=== PATIENT | female | born 1970 | race Caucasian/White ===

== ENCOUNTER → 2021-02-22 10:14 | Outpatient (CLI) | payer OTHER, SELFPAY ==
[2021-02-22 13:07] LABS: COVID19 -Nasal RAPID Negative (Negative)
== END ==
PROVIDERS: PCP Nurse Practitioner; Visit Provider Nurse Practitioner
DX: Z01.812 Encounter for preprocedural laboratory examination (principal)
CPT/HCPCS: 87635

== ENCOUNTER 2021-02-23 09:00 | Day surgery (SDC) | payer OTHER, SELFPAY ==
[2021-02-23 09:25] VITALS: BP 106/70; PULSE 54; RESP 16; TEMP 36.5; O2SAT 98; BMI 28.1
[2021-02-23] MEDS: SODIUM CHLORIDE 0.9% 1,000 ML 84 ML IV (09:35)
--- NOTE | 2021-02-23 10:07 | PM.HP.1 ---
History of Present Illness History of Present Illness Date Patient Seen: 02/23/21 Time Patient Seen: 10:08 Chief complaint: SDC Narrative: Indicated for colon cancer screening. Asymptomatic. Patient History Comment: Hx of gastric sleeve Family & Social History Social History: household members spouse Tobacco & Substance use: Smoking Status Never smoker alcohol intake current alcohol intake frequency a few times a week Substance Use Type does not use Meds Home Medications and Allergies Home Medications Medication Instructions Recorded Confirmed Type escitalopram oxalate 10 mg tablet 10 mg PO DAILY #0 11/28/16 02/23/21 History (Lexapro) melatonin 5 mg tablet 5 mg PO PRN PRN #0 11/28/16 02/23/21 History letrozole 2.5 mg tablet (Femara) 2.5 mg PO QDAY #30 tab 05/15/17 02/23/21 Rx calcium 600 mg capsule 600 mg PO DAILY 02/23/21 02/23/21 History Allergies Allergy/AdvReac Type Severity Reaction Status Date / Time No Known Drug Allergies Allergy Verified 02/23/21 08:18 Review of Systems Review of Systems ROS: Yes All systems reviewed with the patient and are negative except as otherwise documented Exam Vital Signs (past 8 hours): - 02/23/21 09:25 Temperature 97.7 F Pulse Rate 54 L Respiratory Rate 16 Blood Pressure 106/70 Pulse Oximetry 98 Oxygen Delivery Method Room Air Const General: cooperative and comfortable Orientation: alert HENSD Head: normocephalic Ears: external ears normal Nose: external nose normal Face and sinus: normal facial exam Mouth: oral mucosae normal Eyes General: appearance normal, both eyes and all related structures Neck Neck: normal visual inspection Chest Chest: normal inspection of the chest Resp Effort & Inspection: normal respiratory effort Auscultation: clear to auscultation bilaterally Cardio Rate: regular rate Rhythm: regular rhythm Heart Sounds: no murmurs GI Inspection: normal to inspection Palpation: soft and No tender Auscultation: normal bowel sounds Skin General: no rashes or lesions noted and No jaundice Neuro General: patient alert and moves all extremities Cognition: normal cognition Speech: speech normal Extrem General: no pedal edema Psych Appearance: grossly normal Assessment & Plan Assessment & Plan narrative: Indicated for colon cancer screening. Colonoscopy today.
--- NOTE | 2021-02-23 10:09 | PM.PREOP ---
Pre-operative Note COVID-19 COVID-19 status: Negative Result date/Date tested (Pos, Neg/Pending): 02/22/21 Interval Note History & Physical reviewed/Exam performed by Physician: Yes Changes to H&P: No ASA Class (for procedural sedation): I
[2021-02-23] MEDS: MIDAZOLAM 5 MG/5 ML VIAL IV (10:38)
[2021-02-23] MEDS: fentaNYL 250 MCG/5 ML INJ IV (10:38)
--- NOTE | 2021-02-23 11:01 | PM.OP.ENDO ---
Operative Date/Time/Diagnoses Date of procedure: 02/23/21 Time of procedure: 11:01 Pre-op diagnosis: Colon cancer screening Post-op diagnosis: same Procedure & Clinicians Study performed: Colonoscopy Same procedure as scheduled: Yes Indications: Colon cancer screening Surgeon: Sylvester Carreon Procedure Notes SCOAP/Timeout: Done Procedure in detail: After the risks and benefits were explained, written and verbal informed consent was obtained. The patient was brought into the procedure room and placed into the left lateral decubitus position. Conscious sedation medication was applied as per nursing documentation. Digital rectal examination was accomplished. The scope was introduced into the patient and advanced under direct visualization to the cecum as identified by the appendiceal orifice and ileocecal valve. The scope was slowly withdrawn to carefully examine the mucosa for any defects or lesions. Comprehensive imaging was accomplished throughout the rectum including the dentate line. The colon was decompressed, the scope was then removed from the patient who tolerated the procedure well. 3 mg Versed 75 mcg fentanyl Bowel prep adequate Adult colonoscope Scope withdrawal time: 8 minutes Sedation minutes: 23 Specimen(s): none sent Complications: none Impression: Patient had a long redundant colon. In order to overcome looping we used the stiffening traci and some abdominal pressure. No significant polyps mass lesions or inflammatory features identified throughout. Hemorrhoids were noted on scope withdrawal. Endoscopic diagnosis 1. Visually normal colonoscopy 2. Grade 2 internal hemorrhoids Post-procedure Recommendations: Colonscopy in 10 years Plan for aftercare: Repeat colonoscopy 10 years time sooner should symptoms warrant an earlier exam. Disposition: PACU
[2021-02-23 11:09] VITALS: BP 105/60; PULSE 50; RESP 16; O2SAT 100
[2021-02-23 11:14] VITALS: BP 112/64; PULSE 45; RESP 16; TEMP 36.7; O2SAT 98
== END 2021-02-23 11:42 | disposition home or self-care (01) ==
PROVIDERS: PCP Family Medicine; Referring Provider Internal Medicine Gastroenterology; Visit Provider Internal Medicine Gastroenterology
PROC: 0DJD8ZZ Inspection of Lower Intestinal Tract, Via Natural or Artificial Opening Endoscopic (ICD-10-PCS; CPT 45378; principal; 2021-02-23 10:00)
DX: Z12.11 Encounter for screening for malignant neoplasm of colon (principal); K64.1 Second degree hemorrhoids
CPT/HCPCS: 45378; J2250; J3010

== ENCOUNTER → 2021-06-15 13:35 | Outpatient (CLI) | payer OTHER, SELFPAY ==
--- NOTE | 2021-06-15 13:37 | DI.MRI.S_ITS ---
BREAST MRI OF BOTH BREASTS- POST LUMPECTOMY: 06/15/2021 CLINICAL: Personal History of Malignant neoplasm of breast. Comparison is made to exams dated: 11/20/2020 stereotactic biopsy - [facility], 11/11/2020 mammogram, 10/21/2020 mammogram, 03/28/2020 breast MRI, 11/11/2020 ultrasound, and 03/12/2020 mammogram - [facility]. INDICATIONS: Personal history of malignant neoplasm of breast TECHNIQUE: The patient was placed prone in a dedicated breast imaging coil. Precontrast axial STIR and 3D FLASH without fat saturation sequences were obtained. Both before and after bolus injection of contrast, sequential 1-minute axial 3D FLASH with fat saturation sequences for 3 time points, with subtraction images and maximum intensity projections (MIP's) generated. Delayed sagittal FLASH images with fat saturation were also obtained. Computer-aided detection, including computer algorithm analysis of MRI image data for lesion detection and characterization, pharmacokinetic analysis, with further physician review for interpretation, was performed. FINDINGS: Image quality: Excellent. There is minimal background parenchymal enhancement. The tissue of both breasts is heterogeneously dense. Right breast: No suspicious mass or abnormal non-mass enhancement. No suspicious internal mammary or axillary lymphadenopathy. Left breast: Postsurgical changes are seen in the left breast anterior depth central to the nipple with multiple surgical clips. Associated skin thickening and trabecular thickening is noted in the left breast, most likely related to postradiation changes. Postsurgical changes are also seen in the left axilla. A biopsy clip is seen in the left medial breast at the 9 o'clock position posterior depth corresponding to the recent stereotactic-guided biopsy with benign results. No suspicious mass or abnormal non-mass enhancement is seen in the left breast. No suspicious internal mammary or axillary lymphadenopathy. Miscellaneous: No significant abnormality is seen in the included anterior chest wall or upper abdomen. IMPRESSION: BENIGN 1. Postsurgical changes are seen in the left breast and left axilla. Biopsy clip is also seen in the medial left breast posterior depth related to the prior stereotactic biopsy. No suspicious mass is seen in the left breast. 2. No MR evidence of malignancy in the right breast. 3. No suspicious axillary or internal mammary lymphadenopathy. BIRADS 2: Benign. A 1 year screening mammogram is recommended. Future imaging is recommended as follows: 10/22/2021 screening mammogram. This exam was interpreted at Station ID: [id number]. Electronically Signed By: Braden Joyce M.D. ar/:06/15/2021 16:36:21 Entry: - 06/16/2021 13:51:11 copy to: Justin PELAYO BI-RADS Category 2: Benign Finding(s) [id number]
== END ==
PROVIDERS: PCP Family Medicine; Referring Provider Internal Medicine; Visit Provider Internal Medicine
DX: Z85.3 Personal history of malignant neoplasm of breast; Z12.39 Encounter for other screening for malignant neoplasm of breast
CPT/HCPCS: 77049; A9579

== ENCOUNTER → 2022-07-12 10:38 | Outpatient (CLI) | payer OTHER, SELFPAY ==
--- NOTE | 2022-07-12 | DI.MRI.S_ITS ---
BREAST MRI OF BOTH BREASTS- POST LUMPECTOMY: 07/12/2022 CLINICAL: Intraductal Carcinoma. TECHNIQUE: The patient was placed prone in a dedicated breast imaging coil. Precontrast axial STIR and 3D FLASH without fat saturation sequences were obtained. Both before and after bolus injection of contrast, sequential 1-minute axial 3D FLASH with fat saturation sequences for 3 time points, with subtraction images and maximum intensity projections (MIP's) generated. Delayed sagittal FLASH images with fat saturation were also obtained. Computer-aided detection, including computer algorithm analysis of MRI image data for lesion detection and characterization, pharmacokinetic analysis, with further physician review for interpretation, was performed. COMPARISON: [facility], MG, MG DIAGNOSTIC BILATERAL, 03/12/2020, 8:33. [facility], MG, MG DIGITAL BREAST TOMOSYNTHESIS BREAST BIOPSY LEFT, 11/20/2020, 13:19. Outside [facility], US, US BREAST LIMITED RIGHT, 11/11/2020, 12:06. Outside [facility], MG, MG SCREENING BILATERAL, 10/21/2020, 11:28. Outside Film, MG, MG DIAGNOSTIC BILATERAL, 11/11/2020, 11:39. [facility], MR, MR BREAST BI WO/W CON, 06/15/2021, 13:42. FINDINGS: Image quality: Excellent. There is mild background parenchymal enhancement. There is heterogeneously dense fibroglandular breast tissue in the bilateral breast. Right breast: No suspicious mass, non-mass enhancement, or architectural distortion identified. No suspicious skin or nipple abnormalities. No axillary or internal mammary chain adenopathy. Left breast: Stable postsurgical changes of the anterior left breast with associated scarring status post partial mastectomy. Susceptibility artifact from surgical clips are unchanged. Stable susceptibility artifact involving the medial aspect of the left breast at a middle to posterior depth compatible with prior benign stereotactic breast biopsy. Otherwise, no suspicious mass, non-mass enhancement, or new suspicious architectural distortion identified. No new suspicious skin or nipple abnormality seen. Stable postsurgical changes of the left axilla. No axillary or internal mammary chain adenopathy. Miscellaneous: Visualized portions of the upper abdomen and chest appear unremarkable. IMPRESSION: BENIGN 1. Right breast without MRI evidence for malignancy. 2. Stable postsurgical and post treatment changes of the left breast without MRI evidence for malignancy. 3. No evidence for axillary or internal mammary chain adenopathy. Recommend continued yearly screening mammography and consideration for yearly breast MRI evaluation. COMMENT: The imaging literature indicates that a negative contrast breast MRI examination has a high sensitivity and a moderate specificity for detecting and excluding invasive carcinomas to a detection threshold of 3-5 mm; nonetheless, appropriate clinical and mammographic follow-up are recommended. MRI is not sensitive for detecting DCIS (ductal carcinoma in situ) and may not detect large invasive neoplasms that show only minimal enhancement such as mucinous carcinoma. If there are suspicious calcifications or clinically worrisome palpable masses, then biopsy should still be considered. Invasive neoplasms can be hidden by co-existent and benign enhancement caused by mastitis, hormone therapy effects, radiation therapy, , and recent biopsy or surgery. False positive examinations can occur in a number of circumstances, including breasts that have recently been subject to invasive procedures and those that contain atypical ductal hyperplasia, hormonally stimulated glandular tissue, fat necrosis, or radial scars. This exam was interpreted at Station ID: [id number]. Electronically Signed By: Torey Blankenship M.D. aty/:07/12/2022 17:39:01 copy to: Justin Tuttle ACR BI-RADS Category 2: Benign Finding(s) [id number]
== END ==
PROVIDERS: PCP Family Medicine; Referring Provider Internal Medicine; Visit Provider Internal Medicine
DX: D05.12 Intraductal carcinoma in situ of left breast (principal)
CPT/HCPCS: 77049; A9579

== ENCOUNTER → 2023-06-28 07:40 | Outpatient (CLI) | payer OTHER, SELFPAY ==
--- NOTE | 2023-06-28 | DI.MRI.S_ITS ---
BREAST MRI OF BOTH BREASTS- POST LUMPECTOMY: 06/28/2023 CLINICAL: Breast Cancer. TECHNIQUE: The patient was placed prone in a dedicated breast imaging coil. Precontrast axial STIR and 3D FLASH without fat saturation sequences were obtained. Both before and after bolus injection of contrast, sequential 1-minute axial 3D FLASH with fat saturation sequences for 3 time points, with subtraction images and maximum intensity projections (MIP's) generated. Delayed sagittal FLASH images with fat saturation were also obtained. 20 cc ProHance gadolinium based IV contrast. Computer-aided detection, including computer algorithm analysis of MRI image data for lesion detection and characterization, pharmacokinetic analysis, with further physician review for interpretation, was performed. COMPARISON: [facility], MR, MR BREAST BI WO/W CON, 07/12/2022, 10:53. FINDINGS: Image quality: Excellent. There is minimal right, and mild to moderate left, background parenchymal enhancement. Right breast: No mass or non masslike enhancement. Left breast: Postsurgical and post treatment changes. No suspicious mass or non masslike enhancement. Miscellaneous: No axillary or internal mammary chain adenopathy. The visible portions of the chest wall, liver, heart, and lungs appear normal. Incidental 1.6 cm liver cyst present. IMPRESSION: BENIGN 1. Stable bilateral breast MRI with postsurgical and post treatment changes in the left breast. 2. No MR evidence new malignancy in either breast or suspicious adenopathy. 3. Recommend annual screening mammography. BIRADS 2, benign COMMENT: The imaging literature indicates that a negative contrast breast MRI examination has a high sensitivity and a moderate specificity for detecting and excluding invasive carcinomas to a detection threshold of 3-5 mm; nonetheless, appropriate clinical and mammographic follow-up are recommended. MRI is not sensitive for detecting DCIS (ductal carcinoma in situ) and may not detect large invasive neoplasms that show only minimal enhancement such as mucinous carcinoma. If there are suspicious calcifications or clinically worrisome palpable masses, then biopsy should still be considered. Invasive neoplasms can be hidden by co-existent and benign enhancement caused by mastitis, hormone therapy effects, radiation therapy, , and recent biopsy or surgery. False positive examinations can occur in a number of circumstances, including breasts that have recently been subject to invasive procedures and those that contain atypical ductal hyperplasia, hormonally stimulated glandular tissue, fat necrosis, or radial scars. This exam was interpreted at Station ID: [id number]. Electronically Signed By: Velvet burris/:06/28/2023 10:06:05 copy to: Justin Tuttle letter sent: Normal Exam ACR BI-RADS Category 2: Benign Finding(s) [id number]
== END ==
PROVIDERS: PCP Family Medicine; Referring Provider Internal Medicine; Visit Provider Internal Medicine
DX: C50.912 Malignant neoplasm of unspecified site of left female breast (principal)
CPT/HCPCS: 77049

== ENCOUNTER → 2023-12-26 18:37 | Outpatient (CLI) | payer OTHER, SELFPAY ==
--- NOTE | 2023-12-26 18:40 | DI.MRI.S_ITS ---
PROCEDURE: MR HEAD/BRAIN WO/W CON INDICATIONS: TRIGEMINAL NEURALGIA TECHNIQUE: Noncontrast axial T1 spin echo, axial T2 fast spin echo, sagittal and axial FLAIR, axial gradient echo, axial diffusion and ADC through the brain. After the administration of contrast, axial and coronal and sagittal T1 spin echo with fat saturation through the brain, coronal thin-slice T1 spin echo with fat saturation through the cavernous sinuses. COMPARISON: None. FINDINGS: Image quality: Excellent. Trigeminal nerves: In this patient with this given history, scrutiny is given to the trigeminal nerves. The trigeminal nerves demonstrate a normal appearance, without masses or abnormal enhancement seen along their courses, including within the Meckel's caves. CSF spaces: Ventricles are normal in size and shape. Basal cisterns are patent. No extra-axial fluid collections. Brain: No acute intracranial bleeds or mass effects. Alba-white matter interface is intact. No abnormal intracranial enhancement. Diffusion weighted images demonstrate no acute ischemic insults. Brainstem appears normal. Normal intravascular flow voids are present. Skull and face: Calvarial marrow signal is normal. Orbits appear normal. Sinuses: Sinuses and mastoids appear clear. IMPRESSION: No imaging explanation is found for this patient's presenting symptoms. No masses or abnormal enhancement can be seen. Dictated by: Tr Vargas M.D. on 12/27/2023 at 10:24 Approved by: Tr Vargas M.D. on 12/27/2023 at 10:33
== END ==
PROVIDERS: PCP Family Medicine; Referring Provider Family Medicine; Visit Provider Family Medicine
DX: G50.0 Trigeminal neuralgia (principal)
CPT/HCPCS: 70553; A9579